=== PATIENT | male | born 1960 | race Caucasian/White ===

== ENCOUNTER → 2017-12-10 | Outpatient (REF) | payer BC ==
[2017-12-10 14:05] LABS: BASO # 0.1 10^3/uL (0.0-0.2); BASO % 0.7 % (0.0-1.0); EOS # 0.1 10^3/uL (0.0-0.50); EOS % 0.9 % (0.0-3.0); HEMATOCRIT 41.6 % (42.0-52.0); HEMOGLOBIN 14.2 g/dl (13.5-17.5); IMMATURE GRANULOCYTE % 0.3 % (0-3.0); LYMPH # 1.5 10^3/uL (1.5-4.5); LYMPH % 19.7 % (24.0-44.0); MEAN CORPUSCULAR HEMOGLOBIN 32.9 pg (27.0-33.0); MEAN CORPUSCULAR HGB CONC 34.1 g/dl (32.0-36.5); MEAN CORPUSCULAR VOLUME 96.5 fl (80.0-96.0); MONO # 0.7 10^3/uL (0.0-0.8); MONO % 9.2 % (0.0-5.0); NEUTROPHILS # 5.3 10^3/uL (1.8-7.7); NEUTROPHILS % 69.2 % (36.0-66.0); PLATELET COUNT, AUTOMATED 283 10^3/uL (150-450); RED BLOOD COUNT 4.31 10^6/uL (4.30-6.10); RED CELL DISTRIBUTION WIDTH 13.5 % (11.5-14.5); WHITE BLOOD COUNT 7.6 10^3/uL (4.0-10.0)
[2017-12-10 14:18] LABS: RHEUMATOID FACTOR QUANT < 10.0 IU/ML (<15.0)
[2017-12-10 14:18] LABS: C REACTIVE PROTEIN QUANTITATIV < 0.30 MG/DL (0.00-0.30)
[2017-12-10 14:28] LABS: ERYTHROCYTE SEDIMENTATION RATE 5 mm/hr (0-20)
[2017-12-14 09:24] LABS: ANTINUCLEAR ANTIBODIES DIRECT Negative (Negative); Lyme Disease IgG/IgM Antibodie <0.91 ISR (0.00-0.90); Lyme Disease IgM Ab Quantitati <0.80 index (0.00-0.79)
== END ==
LOC: M LABDRAW1 13:10
DX: M19.071 Primary osteoarthritis, right ankle and foot (principal)
CPT/HCPCS: 86140

== ENCOUNTER 2019-05-03 08:03 | Inpatient (IN) | payer BC ==
--- NOTE | 2019-04-24 15:59 | HPE ---
DATE OF ANTICIPATED ADMISSION: 05/03/2019 ATTENDING PHYSICIAN: Dr. Padron CHIEF COMPLAINT: Left knee pain and stiffness. HISTORY: The patient is a 58-year-old male with post-traumatic left knee osteoarthritis. He has failed to improve with conservative measures. He continues to have symptoms with weightbearing activities and activities of daily living. He consented for an elective left total knee arthroplasty with Dr. Padron for his continued symptoms. Medical optimization completed with Dr. Stack and was available for review today. CURRENT MEDICATIONS: None. ALLERGIES TO MEDICATIONS: None. CHRONIC MEDICAL CONDITIONS: History of hyperlipidemia. PAST SURGICAL HISTORY: Bilateral knee arthroscopies, left shoulder rotator cuff repair, appendectomy, colonoscopy. SOCIAL HISTORY: The patient is a smoker and does smoke approximately one half pack a day. He is trying to cut down his a does understand that this may delay healing status post surgery. The patient does use alcohol in moderation. He is and lives at home with spouse. REVIEW OF SYSTEMS: The patient denies fevers, chills, nausea, vomiting or diarrhea. Denies chest pain, shortness of breath, lightheadedness, dizziness or headaches. Denies any recent upper respiratory or urinary tract infection symptoms. Denies any abdominal pain. He does continue to have left knee pain with weightbearing activities and activities of daily living. PHYSICAL EXAMINATION: General: Well-nourished, well-developed male in no apparent distress. He is alert, oriented and cooperative. Mood and affect are appropriate. Vital signs: Height 5 feet 10 inches, weight 222 pounds, temperature 97.4, blood pressure 131/79, respirations 16, heart rate 93. Neck: Supple without lymphadenopathy. Heart: Regular rate and rhythm. Lungs: Clear to auscultation bilaterally. Abdomen: Bowel sounds are present. Abdomen is soft and nontender to palpation. Musculoskeletal: Left knee exhibits healed scars from his previous surgeries. There is quite a bit of tenderness along the medial and lateral joint lines. He can extend and flex knee fully. Strength of the left lower extremity is 5/5. There was no hip irritability elicited with range of motion testing. The patient's calf is soft, nontender to palpation with no palpable cords noted. He is neurovascularly intact distally. LABORATORY DATA: Chest x-ray - No active disease. No significant change since September of 2014 studies. Left knee x-ray notable for end-stage degenerative changes with evidence of a previous Edwina procedure. EKG revealed a sinus rhythm. Comprehensive metabolic profile - sodium 139, potassium 4.3, chloride 103, carbon dioxide 25.1, anion gap 10.9, BUN 18, creatinine 1, GFR greater than 60, glucose 96, calcium 9, total bilirubin 0.6, AST 33, ALT 30, alkaline phosphatase 67, total protein 6.8, albumin 3.6. Prothrombin time 9.5, INR 0.91. Complete blood count WBC is 8.6, RBC is 4.55, hemoglobin 14.7, hematocrit 42.9, ESR 8, platelets 273. IMPRESSION: Left knee post-traumatic osteoarthritis with x-rays notable for end-stage degenerative changes. PLAN: The patient consented for an elective left total knee arthroplasty with Dr. Padron for his continued symptoms. Medical optimization completed with Dr. Reason. HECK
[2019-05-03] VITALS (8 sets, daily range): BP systolic 114–137; BP diastolic 71–85
[~2019-05-03] VITALS: Ht 180.3 cm; Wt 101.1 kg
[~2019-05-03 08:03] MED LIST: ACETAMINOPHEN 500 MG TAB PO ONE; LR 1,000 ML IV ONE; MIDAZOLAM INJ 2 MG/2 ML VIAL (J2250) As Ordered ONE; ONDANSETRON 4MG/2ML VIAL (J2405) As Ordered ONE; PROPOFOL 500 MG/50 ML VIAL As Ordered ONE; ceFAZolin SOD 2 GM in IV 1 EA IV ONE
[2019-05-03] MEDS ORDERED: BUPIVACAINE HCL 0.25% 10 ML VIAL As Ordered ONE (08:58)
[2019-05-03] MEDS ORDERED: ceFAZolin 1GM INJ (J0690 PER 500MG) As Ordered ONE (08:58)
[2019-05-03] MEDS ORDERED: TRANEXAMIC ACID 100 MG/ML 10ML VIAL As Ordered ONE (08:58)
[2019-05-03] MEDS ORDERED: EPINEPHrine INJ 1 MG/ML 1ML AMP As Ordered ONE (08:58)
[2019-05-03] MEDS ORDERED: BUPIVACAINE LIPOSOME/PF 1.3% 20ML VIAL (13.3MG/ML)(EXPAREL)(C9290 PER1MG) As Ordered ONE (08:59)
[2019-05-03] MEDS ORDERED: MIDAZOLAM INJ 2 MG/2 ML VIAL (J2250) As Ordered ONE ×2 (09:16→10:23)
[2019-05-03] MEDS ORDERED: fentaNYL 100 MCG/2 ML INJECTION (J3010) As Ordered ONE (09:16)
[2019-05-03] MEDS ORDERED: fentaNYL 100 MCG/2 ML INJECTION (J3010) IV ONE (10:30)
[2019-05-03] MEDS ORDERED: MIDAZOLAM INJ 2 MG/2 ML VIAL (J2250) IV ONE (10:30)
[2019-05-03] MEDS ORDERED: LIDOCAINE 2% INJ 100 MG/5 ML SDV (FOR ANES.) As Ordered ONE (11:10)
[2019-05-03] MEDS ORDERED: PROPOFOL 500 MG/50 ML VIAL As Ordered ONE (11:17)
[2019-05-03] MEDS ORDERED: fentaNYL 100 MCG/2 ML INJECTION (J3010) IV PRN (12:45)
[2019-05-03] MEDS ORDERED: FLEET ENEMA PR PRN (12:45)
[2019-05-03] MEDS ORDERED: ONDANSETRON 4MG/2ML VIAL (J2405) IV PRN (12:45)
[2019-05-03] MEDS ORDERED: LR 1,000 ML IV SCH (12:45)
[2019-05-03] MEDS ORDERED: HYDROMORPHONE HCL 0.5 MG/ 0.5 ML SYRINGE (J1170 PER 1) IV PRN ×3 (12:45→14:15)
[2019-05-03] MEDS ORDERED: PERCOCET 5MG/325MG TAB PO PRN ×2 (12:45→16:45)
[2019-05-03] MEDS ORDERED: ACETAMINOPHEN TAB 650MG DOSE (2X325MG) PO PRN (12:45)
--- NOTE | 2019-05-03 13:00 | REP ---
Clinical: Status post knee replacement. Technique AP and cross-table lateral views. Findings: The patient is status post left knee replacement with normal positioning and appearance to the femoral and tibial components. Overlying postsurgical changes appreciated. Impression: Status post left knee replacement. Electronically Signed by Getachew Adams MD 05/03/2019 12:51 P
--- NOTE | 2019-05-03 13:11 | RO ---
DATE OF PROCEDURE: 05/03/2019 PREPROCEDURE DIAGNOSIS: Left knee tricompartmental degenerative arthritis with retained hardware. POSTPROCEDURE DIAGNOSIS: Left knee tricompartmental degenerative arthritis with retained hardware. PROCEDURE: Left total knee arthroplasty using a cruciate-sacrificing size 8 femoral component, cemented and a size 8 tibial tray, and a 10 mm rotating platform posterior stabilized polyethylene insert, and a 38 mm polyethylene button. All components were cemented. Prosthesis was made by [employer]. It was an Attune knee. SURGEON: Dr. Socrates Padron WINDOWS SOFTWARE ENGINEER: Maryneva Song ANESTHESIA: Spinal with left femoral nerve block. COMPLICATIONS: None. ESTIMATED BLOOD LOSS: 20 mL. SPECIMENS: Joint surface. DESCRIPTION OF PROCEDURE: He was given antibiotics preoperatively and a left femoral nerve block was established. He was taken to the operating room where a spinal anesthetic was induced. Tourniquet was placed on the left upper thigh and not inflated. The left lower extremity was carefully prepped and draped in the usual sterile fashion, then elevated, and after appropriate time out the tourniquet was inflated. A longitudinal incision was made incorporating the previous medial parapatellar arthrotomy incision. Subperiosteal dissection around the proximal, medial and lateral tibial plateaus performed, hemostasis secured with a Bovie cautery. Patella was everted and the knee was flexed. Drill down the center of the femoral canal, followed by the intramedullary rafat, and the distal femoral cutting jig set at 5 degree valgus cut at 9 mm resection level for a left knee. Block was pinned in position. Distal femoral cut was performed. The AP sizing jig was then placed and measured at size 8 femoral component, 3 degrees external rotation dialed in, the pins were placed and then the 4-in-1 block applied. Anterior, posterior, chamfer cuts were then performed. We then used the sulcus jig to perform the sulcus osteotomy after pinning it in position. We then exposed the proximal tibia and used the extramedullary tibial alignment jig in attempt to be parallel to the mechanical axis of the proximal tibia. We referenced off the medial tibial condyle at 4 mm resection level. The block was pinned into position, and then the extramedullary rafat was used as a secondary check. It appeared to be parallel to the mechanical axis. Thus, a proximal tibial osteotomy was performed. The lamina sports coordinator was then placed laterally, and we performed a completion medial meniscectomy and debridement of the posteromedial osteophytes. We then placed the lamina sports coordinator medially and performed a completion lateral meniscectomy and debridement of the posterolateral osteophytes. Spacer blocks were then applied. The 8 mm was just about appropriate in flexion but a bit snug, but in extension he is actually quite loose and it is also tighter medially than laterally, thus I did do a bit more supplemental medial release along the posteromedial tibia, as well as removed all the medial tibial osteophytes. 10 mm spacer in extension actually seemed to be appropriate, but it was a bit too tight in flexion. A simple posterior cruciate ligament (PCL) release would correct this asymmetry without causing undo posterior instability and thus I felt it best, given his deformity, to proceed with a posterior cruciate sacrificing construct. At this point, we debrided the PCL from the notch and applied the femoral component jig for the PCL sacrificing implant. It was pinned in position and then the notch plasty was performed. The trial was placed. We exposed the proximal tibia and sized for a #8 tibial tray, which was pinned into position, followed by the reamer and broach. It was noteworthy that we did not come across interference with the preexisting screw from previous Edwina procedure. Thus, we did not feel it necessary to remove that screw. The trial 10 mm was placed. We brought into extension and it was actually very symmetrically stable to varus and valgus stress testing and it came out to full extension. Patellar osteotomy performed, lug holes drilled. We sized for a 38 button. The trial was placed and patellofemoral tracking was anatomic. He had excellent full flexion to gravity with these components in place. Thus, I felt that this was appropriate size. The lug holes for the femur were drilled. The trials were removed. Copiously pulsatile lavage irrigated out the bony surfaces, as my assistance, Ms. Mary Song, mixed the cement on the back table. I prepared the femoral, tibial and patellar surfaces for cementing with a copious amount of pulsatile lavage irrigant solution. Exparel was placed in the subperiosteal tissues of the distal femur and proximal tibia and then when all the bony surfaces were dried, we cemented the tibial tray and removed excess cement. Then we cemented the femoral component and removed excess cement. Then we placed the polyethylene and brought the knee out in extension, everted the patella and cemented the patellar button, removed excess cement and held the knee in extension with patellar clamp in place until the cement had hardened. As we were awaiting this, we copiously pulsatile lavaged out the knee joint with a copious amount of sterile saline solution and then applied tranexamic acid, then began closing the apex of the arthrotomy with two #1 PDS sutures, the medial parapatellar area was closed with a #1 PDS suture, then a running double-armed Stratafix used to close the capsule. The tourniquet was released at this point. We irrigated again between layers, closed the deep subdermal tissues with interrupted #2-0 PDS suture, skin was closed with gokul, covered by an Optifoam and then dry sterile bulky dressing. The patient was then transferred to the recovery room in stable condition. There were no intraoperative complications. Mary Duncan was critical to the success of this difficult procedure by helping with appropriate soft tissue retraction, helped to flex and extend the knee, helped to mix the cement, helped to prepare the patient for surgery, helped to close the wound, amongst many other tasks to allow me to perform the operation smoothly, efficiently, and safely.
[2019-05-03] MEDS: ceFAZolin SOD 2 GM in IV 1 EA IV SCH ×2 (17:04→23:15)
[2019-05-03] MEDS: LR 1,000 ML IV SCH ×2 (17:05→23:18)
--- NOTE | 2019-05-03 17:25 | HPEPDOC ---
General Date of Admission May 03, 2019 at 08:03 Date of Service: May 03, 2019 Attending Physician: RAMIRO SCHAFFER MD Chief Complaint The patient is a 58-year-old male admitted with a reason for visit of Osteoarthritis Of Left Knee. Source: Patient Exam Limitations: No limitations Timing/Duration: Other (post op) History of Present Illness 58 yo man with a history of osteoarthritis s/p bilateral knee arthroscopies who presented for an elective left total knee arthroplasty with Dr. Padron that went very well and is now admitted for post op observation, with medicine consulted for medical management with no acute issues at this time. Allergies Coded Allergies: No Known Allergies (Unverified , 04/19/19) Past Medical History Medical History Hyperlipidemia Smoking Surgical History Bilateral knee arthroscopies, left shoulder rotator cuff repair, appendectomy, colonoscopy. Family History Significant Family History: No pertinent family hx Social History * Smoker: Denies, current smoker (1/2 ppd) Drugs: denies Recent Travel/Sick Contacts: Denies: Recent travel, Recent sick contacts Psychosocial History: No pertinent psych hx smokes 1/2 pack per day A-FIB/CHADSVASC A-FIB History Current/History of A-Fib/PAF?: No Current PO Anticoag Therapy: No Age/Risk Factor Scoring CHADSVASC: CHADSVASC Response (Comments) Value Age Risk Factor Age < 65 years old 0 Gender Risk Factor Male 0 Hx of CHF No 0 Hx of HTN No 0 Hx of Stroke/TIA/or VTE No 0 Hx of Diabetes No 0 Hx of Vascular Disease No 0 Total 0 Treatment Treatment ordered: NONE Reason Anticoagulant not given: Not indicated/[id number] Review of Systems Constitutional: Denies: Chills, Fever, Night Sweats Eyes: Denies: Pain, Vision change ENT: Denies: Head Aches, Ear Pain, Dysphagia, Sinus Congestion, Post Nasal Drip, Sore Throat, Epistaxis, Other Symptoms Skin: Denies: Rash, Lesions, Breakdown Pulmonary: Denies: Dyspnea, Cough Cardiovascular: Denies: Chest Pain, Palpitations, Orthopnea, Paroxysmal Noc. Dyspnea, Lt Headedness Gastrointestinal: Denies: Nausea, Vomiting, Abdominal Pain, Diarrhea Genitourinary: Denies: Dysuria, Frequency, Incontinence, Retention Hematologic: Denies: Bruising, Bleeding Excessively Endocrine: Denies: Polydipsia, Polyphagia, Polyuria, Heat Intolerance, Cold Intolerance, Other Endocrine Sx Musculoskeletal: Denies: Neck Pain, Back Pain, Joint Pain, Muscle Pain, Spasms Neurological: Reports: Numbness (due to pain meds, had local anesthesia ); Denies: Weakness, Change in speech, Confusion Psych: Reports: Mood Normal; Denies: Depression, Memory Issues Physical Examination General Exam: Positive: Alert Eye Exam: Positive: PERRLA, Conjunctiva & lids normal, EOMI; Negative: Sclera icteric ENT Exam: Positive: Atraumatic, Mucous membr. moist/pink, Pharynx Normal Neck Exam: Positive: Supple; Negative: JVD, thyromegaly Chest Exam: Positive: Clear to auscultation, Normal air movement Heart Exam: Positive: Rate Normal, Regular Rhythm, Normal S1, Normal S2; Negative: Murmurs, Rubs Abdomen Exam: Positive: Normal bowel sounds, Soft; Negative: Tenderness, Hepatospenomegaly Extremity Exam: Positive: Normal pulses; Negative: Clubbing, Cyanosis, Edema Skin Exam: Positive: Nl turgor and temperature; Negative: Breakdown, Lesion Neuro Exam: Positive: Normal Speech, Cranial Nerves 3-12 NL, Other (just beginning to get his sensation back in LE) Psych Exam: Positive: Mental status NL, Mood NL, Oriented x 3 Vital Signs Vital Signs Date Time Temp Pulse Resp B/P (MAP) Pulse Ox O2 Delivery O2 Flow Rate FiO2 05/03/19 16:27 18 Room Air 05/03/19 16:15 98.5 91 118/72 (87) 94 05/03/19 09:55 3 Assessment/Plan 58 yo man with a history of osteoarthritis s/p bilateral knee arthroscopies who presented for an elective left total knee arthroplasty with Dr. Padron that went very well and is now admitted for post op observation, with medicine consulted for medical management with no acute issues at this time. Plan: Hyperlipidemia: reports previously having been on a statin that was discontinued, but thinks it may be restarted again soon Smoking: smokes 1/2 ppd. Is working actively to cut down in an effort to eventually quit. No desire for pharmacological intervention at this time in the quitting process. DVT ppx: Xarelto 10 QD per surgery. Pain management: per surgery. Dispo: per surgery, otherwise medically stable. Plan / VTE VTE Prophylaxis Ordered?: Yes RAMIRO SCHAFFER MD May 03, 2019 17:25
--- NOTE | 2019-05-03 17:35 | CR.PDOC ---
General Date of Consultation: May 03, 2019 Attending Physician: CHELSEY NAYLOR MD Consultation REASON FOR CONSULTATION/CHIEF COMPLAINT: Status post left total knee arthroplast y. HISTORY OF PRESENT ILLNESS: 58-year-old male with no significant past medical history is admitted status post left total knee arthroplasty. Procedure was done with spinal anesthesia, patient tolerated well, no complications, patient without complaints at this time. He has regained motor and sensory function of his left lower extremity. He denies any short of breath, chest pain, nausea, vomiting, abdominal or diarrhea. 10 point review of system is negative except for above ALLERGIES: Please see below. HOME MEDICATIONS: Please see below. PAST MEDICAL HISTORY: 1. Osteoarthritis. PAST SURGICAL HISTORY: 1. Total knee arthroplasty 2. Appendectomy FAMILY HISTORY: Both parents with heart disease SOCIAL HISTORY: Current smoker, less than half pack per day for over 30 years Social alcohol use. Denies drug use PHYSICAL EXAMINATION: VITAL SIGNS: Please see below. GENERAL: No distress HEENT: Normocephalic, atraumatic, moist mucous membranes NECK: Supple CARDIOVASCULAR EXAMINATION: S1, S2, no murmurs RESPIRATORY EXAMINATION: Clear to auscultation, no wheezing ABDOMINAL EXAMINATION: Soft, nontender, nondistended, positive bowel sounds EXTREMITIES: Range of motion limited SKIN: No rash NEUROLOGICAL EXAMINATION: Alert and oriented 3, no focal deficits PSYCHIATRIC EXAMINATION: Calm and cooperative LABORATORY DATA: Please see below. ASSESSMENT/PLAN: 1. Left total knee arthroplasty. Management as per primary team, encourage ambulation, Xarelto for DVT prophylaxis. 2. Active smoker. Patient counseled on smoking cessation Vital Signs/I&O Vital Signs Date Time Temp Pulse Resp B/P (MAP) Pulse Ox O2 Delivery O2 Flow Rate FiO2 05/03/19 16:27 18 Room Air 05/03/19 16:15 98.5 91 118/72 (87) 94 05/03/19 09:55 3 I&O- Last 24 Hours up to 6 AM 05/03/19 06:00 Intake Total 0 ml Balance 0 ml Allergies Coded Allergies: No Known Allergies (Unverified , 04/19/19) CHELSEY NAYLOR MD May 03, 2019 17:35
[2019-05-03] MEDS: PERCOCET 5MG/325MG TAB PO PRN (20:05)
[2019-05-04] VITALS: BP 126/82
[2019-05-04] MEDS: PERCOCET 5MG/325MG TAB PO PRN ×4 (00:15→13:04)
[2019-05-04 04:09] VITALS: BP 133/79
[2019-05-04] MEDS: ceFAZolin SOD 2 GM in IV 1 EA IV SCH (04:18)
[2019-05-04] MEDS ORDERED: PERC5TAB12 PO (06:16)
[2019-05-04] MEDS ORDERED: XARE10TA PO (06:16)
[2019-05-04 06:50] LABS: INR 1.12; PROTHROMBIN TIME 14.1 SECONDS (11.8-14.0)
[2019-05-04 06:54] LABS: BLOOD UREA NITROGEN 12 MG/DL (7-18); CALCIUM LEVEL 8.6 MG/DL (8.8-10.2); CARBON DIOXIDE LEVEL 25 MEQ/L (21-32); CHLORIDE LEVEL 106 MEQ/L (98-107); CREATININE FOR GFR 0.87 MG/DL (0.70-1.30); GLOMERULAR FILTRATION RATE > 60.0 (>49); GLUCOSE, FASTING 114 MG/DL (70-100); POTASSIUM SERUM 3.9 MEQ/L (3.5-5.1); SODIUM LEVEL 139 MEQ/L (136-145)
[2019-05-04 07:24] LABS: HEMATOCRIT 37.9 % (42.0-52.0); HEMOGLOBIN 12.8 g/dl (13.5-17.5); MEAN CORPUSCULAR HEMOGLOBIN 32.7 pg (27.0-33.0); MEAN CORPUSCULAR HGB CONC 33.8 g/dl (32.0-36.5); MEAN CORPUSCULAR VOLUME 96.9 fl (80.0-96.0); PLATELET COUNT, AUTOMATED 221 10^3/uL (150-450); RED BLOOD COUNT 3.91 10^6/uL (4.30-6.10); WHITE BLOOD COUNT 11.6 10^3/uL (4.0-10.0)
[2019-05-04] MEDS ORDERED: RIVAROXABAN 10 MG TAB (XARELTO) PO SCH ×2 (08:00→18:00)
[2019-05-04] MEDS ORDERED: SENOKOT S TAB PO SCH (09:00)
[2019-05-04] MEDS ORDERED: FLUBLOK(EGG FREE)(QUAD)INFLUENZA VACC 0.5ML SYRINGE (90682)18YRS&OLDER IM ONE (09:00)
[2019-05-04] MEDS ORDERED: MIRALAX *UNIT DOSE* 17GM PACKET PO SCH (09:00)
[2019-05-04] MEDS ORDERED: MOM 30ML SUSPENSION UDC PO SCH (09:00)
[2019-05-04 10:00] VITALS: BP 129/79
== END 2019-05-04 15:45 | disposition home or self-care (01) | DRG 302 ==
LOC: M OR 08:03 → M MS5PR 13:40
PROVIDERS: ADMIT Orthopaedic Surgery; ATTEND Orthopaedic Surgery
PROC: 0SRD0J9 Replacement of Left Knee Joint with Synthetic Substitute, Cemented, Open Approach (ICD-10-PCS; principal; 2019-05-03 10:15)
DX: M17.12 Unilateral primary osteoarthritis, left knee (principal); R26.89 Other abnormalities of gait and mobility; F17.200 Nicotine dependence, unspecified, uncomplicated; Z90.49 Acquired absence of other specified parts of digestive tract

== ENCOUNTER → 2023-03-03 | Outpatient (CLI) | payer BC, OTHER ==
[~2023-03-03] MED LIST changes: -ACETAMINOPHEN 500 MG TAB PO ONE; -LR 1,000 ML IV ONE; -MIDAZOLAM INJ 2 MG/2 ML VIAL (J2250) As Ordered ONE; -ONDANSETRON 4MG/2ML VIAL (J2405) As Ordered ONE; +PERC5TAB12 PO; -PROPOFOL 500 MG/50 ML VIAL As Ordered ONE; +XARE10TA PO; -ceFAZolin SOD 2 GM in IV 1 EA IV ONE
== END ==
LOC: M RAD 09:51
PROVIDERS: ATTEND Registered Nurse
DX: Z12.2 Encounter for screening for malignant neoplasm of respiratory organs (principal); F17.210 Nicotine dependence, cigarettes, uncomplicated; R91.8 Other nonspecific abnormal finding of lung field; J43.9 Emphysema, unspecified; J47.9 Bronchiectasis, uncomplicated